=== PATIENT | female | born 1975 | race Two or more races ===

== ENCOUNTER → 2023-09-10 | Outpatient (CLI) | payer MEDICAID ==
[2023-09-10 11:58] LABS: Albumin 4.6 g/dL (3.2-4.8); Bilirubin, Direct 0.2 mg/dL (<0.3); Bilirubin, Total 0.6 mg/dL (0.2-1.0)
== END | disposition home or self-care (01) ==
LOC: LAB 11:15
PROVIDERS: ATTEND Student in an Organized Health Care Education/Training Program
DX: B35.1 Tinea unguium (principal)
CPT/HCPCS: 36415; 80076